=== PATIENT | male | born 1955 | race Caucasian/White ===

== ENCOUNTER 2018-07-05 18:24 | Emergency (ER) | payer OTHER ==
[2018-07-05] MEDS ORDERED: LIDOCAINE 1% MPF 30 ML VIAL ONE (18:43)
--- NOTE | 2018-07-05 19:08 | RAD REPORT ---
EXAM DESCRIPTION: CT - Facial Bones W/ Mpr - 07/05/2018 6:45 pm CLINICAL HISTORY: Facial injury status post fall with facial pain TECHNIQUE: Computed axial tomography of the face was obtained. Coronal and sagittal reconstruction w as performed. All CT scans are performed using dose optimization technique as appropriate and may include automated exposure control or mA/KV adjustment according to patient size. FINDINGS: A mildly displaced fracture of the nasal septum. A mildly displaced nasal bone is seen A TMJ dislocation is not noted. Lucencies surround 2 mandibular teeth probably indicating abscesses The globes are intact. Moderate mucoperiosteal thickening involves the sinuses IMPRESSION: A mildly displaced fracture nasal septum and nasal bone
--- NOTE | 2018-07-05 19:15 | RAD REPORT ---
EXAM DESCRIPTION: CT - Head C Spine Mpr Wo Con - 07/05/2018 6:45 pm CLINICAL HISTORY: Head and neck injury status post fall. Head and neck pain COMPARISON: None. TECHNIQUE: Computed axial tomography of the head and cervical spine was obtained. Sagittal and coronal reconstruction was performed. All CT scans are performed using dose optimization technique as appropriate and may include automated exposure control or mA/KV adjustment according to patient size. FINDINGS: An intracranial bleed is not seen. The ventricles are normal in caliber. An extra-axial fl uid collection is not noted. A cervical fracture is not visualized. No dislocation is noted. Spondylosis C5-6 results in moderate central spinal stenosis and moderate to marked foraminal stenosis. Spondylosis C6-7 results in modera te foraminal stenosis IMPRESSION: No acute intracranial abnormality is seen. A cervical fracture is not visualized. If the patient continues to have symptoms to suggest intracra nial /spinal cord pathology then MRI would be recommended
[2018-07-05] MEDS ORDERED: BUPIVACAINE 0.5% PF 10 ML VIAL ONE (19:45)
[2018-07-05] MEDS ORDERED: LIDOCAINE 1% W/EPI 1:100,000 MDV 50 ML VIAL ONE (19:46)
--- NOTE | 2018-07-05 20:28 | EDPHYS ---
Physician Documentation [facility] Name: Pablo Ross Age: 63 yrs Sex: Male : 1955 Arrival Date: 07/05/2018 Time: 18:26 Bed 5 Private MD: ED Physician Rangel De La Cruz HPI: 07/05 18:35 This 63 yrs old Male presents to ER via EMS with complaints of Fall Injury, cp Laceration To Forehead. 18:35 Details of fall: The patient fell from an upright position, while walking, and struck a cp concrete surface. Onset: The symptoms/episode began/occurred just prior to arrival. Associated injuries: The patient sustained injury to the head, laceration, of the forehead and nose. 18:35 Patient reports he was playing with grandson when his feet got tangled causing him to cp fall forward and strike face against concrete. No LOC. Historical: - Allergies: 18:34 No Known Allergies; bp - Home Meds: 18:34 None [Active]; bp - PMHx: 18:34 Emphysema; Seizures; bp - Immunization history: Last tetanus immunization: unknown. - Social history:: Smoking status: Patient uses tobacco products, smokes one pack cigarettes per day. - Ebola Screening: : Patient negative for fever greater than or equal to 101.5 degrees Fahrenheit, and additional compatible Ebola Virus Disease symptoms Patient denies exposure to infectious person Patient denies travel to an Ebola-affected area in the 21 days before illness onset No symptoms or risks identified at this time. ROS: 18:40 Constitutional: Negative for chills, fever, poor PO intake. cp 18:40 Eyes: Negative for acute changes. cp 18:40 Cardiovascular: Negative for chest pain, edema, palpitations. 18:40 Respiratory: Negative for cough, shortness of breath, wheezing. 18:40 Abdomen/GI: Negative for abdominal pain, nausea, vomiting, black/tarry stool, rectal bleeding. 18:40 Back: Negative for pain at rest, pain with movement. 18:40 Skin: Positive for laceration(s), of the forehead and nose. 18:40 Neuro: Negative for altered mental status, dizziness, loss of consciousness, seizure activity, syncope, near syncope, weakness. 18:40 All other systems are negative. Exam: 18:52 Constitutional: The patient appears in no acute distress, alert, awake, cp non-diaphoretic, non-toxic, well developed, well nourished. 18:52 Head/face: Noted is a laceration(s), that is deep, that is linear, of the forehead and cp nose, Sinus tenderness, is not appreciated. 18:52 Eyes: Periorbital structures: appear normal, Pupils: teardrop shaped, in the right eye, Extraocular movements: intact throughout, Conjunctiva: normal, no exudate, no injection, Sclera: no appreciated abnormality, Lids and lashes: appear normal, bilaterally. 18:52 ENT: External ear(s): are unremarkable, Ear canal(s): are normal, clear, TM's: dullness, bilaterally, Nose: External nose: laceration is present, bridge of nose, Nasal septum: no septal hematoma appreciated, bleeding, is not appreciated, nasal drainage, is not appreciated, Mouth: Lips: moist, Oral mucosa: pink and intact, moist, Posterior pharynx: is normal, airway is patent. 18:52 Neck: C-spine: C-collar placed in ED, vertebral tenderness, is not appreciated, crepitus, is not appreciated. 18:52 Chest/axilla: Inspection: normal, Palpation: is normal, no crepitus, no tenderness. 18:52 Cardiovascular: Rate: normal, Rhythm: regular, Edema: is not appreciated, JVD: is not appreciated. 18:52 Respiratory: the patient does not display signs of respiratory distress, Respirations: normal, no use of accessory muscles, no retractions, no splinting, no tachypnea, labored breathing, is not present, Breath sounds: are clear throughout, no decreased breath sounds, no stridor, no wheezing. 18:52 Abdomen/GI: Inspection: abdomen appears normal, Palpation: abdomen is soft and non-tender, in all quadrants. 18:52 Back: pain, is absent, vertebral tenderness, is not appreciated. 18:52 Musculoskeletal/extremity: Exam is negative for decreased range of motion, deformity, injury, Pulses: noted to be 2+ in the right radial artery and left radial artery. 18:52 Neuro: Orientation: to person, place \T\ time. Mentation: is normal, Cerebellar function: is grossly normal, Motor: is normal, Sensation: is normal. Vital Signs: 18:27 BP 158 / 85; Pulse 81; Resp 16; Temp 97.9; Pulse Ox 96% ; Weight 73.48 kg; Height 5 ft. bp 9 in. (175.26 cm); 18:38 BP 162 / 91; Pulse 85; Resp 16; Pulse Ox 95% ; bp 19:20 BP 145 / 81; Pulse 70; Resp 16; Pulse Ox 96% ; ao 20:46 BP 143 / 87; Pulse 71; Resp 16; Pulse Ox 97% on R/A; Pain 0/10; ao 18:27 Body Mass Index 23.92 (73.48 kg, 175.26 cm) bp [place] Coma Score: 18:27 Eye Response: spontaneous(4). Verbal Response: oriented(5). Motor Response: obeys bp commands(6). Total: 15. Trauma Score (Adult): 18:27 Eye Response: spontaneous(1); Verbal Response: oriented(1); Motor Response: obeys bp commands(2); Systolic BP: > 89 mm Hg(4); Respiratory Rate: 10 to 29 per min(4); Marco Antonio Score: 15; Trauma Score: 12 Laceration: 20:25 Wound Repair of 5.5cm ( 2.2in ) subcutaneous laceration to forehead. Linear shaped.. cp Distal neuro/vascular/tendon intact. Anesthesia: Wound infiltrated with 4 mls of 1% lidocaine w/ Epi. Wound prep: Moderate cleansing by nurse, Wound irrigation by nurse. Skin closed with 7 5-0 Prolene using interrupted sutures and sterile technique. Dressed with Bacitracin, Kerlix, non-adherent dressing. Patient tolerated well. 20:25 Wound Repair of 2cm ( 0.8in ) subcutaneous laceration to bridge of nose. Linear cp shaped.. Distal neuro/vascular/tendon intact. Anesthesia: Wound infiltrated with 2 mls of 1% lidocaine w/ Epi. Wound prep: Moderate cleansing by nurse, Wound irrigation by nurse. Skin closed with 3 5-0 Prolene using interrupted sutures and sterile technique. Dressed with Bacitracin, non-adherent dressing. Patient tolerated well. MDM: 18:31 Patient medically screened. cp 19:00 Differential diagnosis: closed head injury, contusion, fracture, laceration, multiple cp trauma. 20:27 Data reviewed: vital signs, nurses notes, radiologic studies, CT scan. cp 20:27 Counseling: I had a detailed discussion with the patient and/or guardian regarding: the cp historical points, exam findings, and any diagnostic results supporting the discharge/admit diagnosis, radiology results, to return to the emergency department if symptoms worsen or persist or if there are any questions or concerns that arise at home. Response to treatment: the patient's symptoms have markedly improved after treatment, and as a result, I will discharge patient. Special discussion: Based on the patient's history, exam and DX evaluation, there is no indication for emergent intervention or inpatient TX. It is understood by the patient/guardian that if the SXs persist or worsen they need to return immediately for re-evaluation. I discussed in detail with the patient the higher chance of wound infection based on his presenting history. 07/05 18:31 Order name: CT Head C Spine; Complete Time: 19:18 cp 07/05 18:31 Order name: CT Facial Bones W/O Con; Complete Time: 19:18 cp 07/05 18:31 Order name: Prolene, Sutures; Complete Time: 18:41 cp 07/05 18:31 Order name: Dressing - Wound; Complete Time: 18:41 cp 07/05 18:31 Order name: Gloves, Sterile; Complete Time: 18:41 cp 07/05 18:31 Order name: Setup Suture Tray; Complete Time: 18:41 cp 07/05 19:22 Order name: Wound Care: please clean and irrigate wound; Complete Time: 19:42 cp Administered Medications: 18:41 Drug: Lidocaine-Epinephrine -1%: (1:100,000) 10 ml {Note: AT B/S FOR PROVIDER.} Volume: bp 20 ml; Route: Infiltration; 20:20 Drug: Augmentin Chewable Tablet 800 mg Route: PO; ao 20:45 Follow up: Response: No adverse reaction ao 20:30 Drug: HYDROcodone-acetaminophen 5 mg-325 mg 1 tabs Route: PO; ao 20:45 Follow up: Response: No adverse reaction ao Disposition: 21:00 Chart complete. cp 07/06 07:14 Co-signature as Attending Physician, Rangel De La Cruz MD I agree with the assessment and kdr plan of care. Disposition: 07/05/18 20:27 Discharged to Home. Impression: Fracture of nasal bones, Laceration w/o foreign body of forehead and nose. - Condition is Stable. - Discharge Instructions: Facial Laceration, Nasal Fracture. - Prescriptions for Tylenol- Codeine #3 300-30 mg Oral Tablet - take 2 tablets by ORAL route every 6 hours As needed; 15 tablet. Augmentin 875- 125 mg Oral Tablet - take 1 tablet by ORAL route every 12 hours for 10 days; 20 tablet. - Medication Reconciliation Form, Thank You Letter, Antibiotic Education, Prescription Opioid Use form. - Follow up: Alma Coburn MD; When: 5 - 6 days; Reason: nasal bone fracture. Follow up: Private Physician; When: 1 week; Reason: Staple/Suture removal. - Problem is new. - Symptoms have improved. Signatures: Dispatcher [employer] EDMS Rangel De La Cruz MD MD [facility] Kvng Hensley PA PA cp Ortiz, Alex, RN RN ao Tim Pandey RN RN bp Corrections: (The following items were deleted from the chart) 07/05 20:49 20:27 07/05/2018 20:27 Discharged to Home. Impression: Fracture of nasal bones; ao Laceration w/o foreign body of forehead and nose. Condition is Stable. Forms are Medication Reconciliation Form, Thank You Letter, Antibiotic Education, Prescription Opioid Use. Follow up: Alma Coburn; When: 5 - 6 days; Reason: nasal bone fracture. Follow up: Private Physician; When: 1 week; Reason: Staple/Suture removal. Problem is new. Symptoms have improved. cp
--- NOTE | 2018-07-05 20:28 | ER ---
Nurse's Notes [facility] Name: Pablo Ross Age: 63 yrs Sex: Male : 1955 Arrival Date: 07/05/2018 Time: 18:26 Bed 5 Private MD: Diagnosis: Fracture of nasal bones;Laceration w/o foreign body of forehead and nose Presentation: 07/05 18:27 Presenting complaint: EMS states: HE TRIPPED ON LOOSE GRAVEL OUTSIDE HIS HOME. Care bp prior to arrival: None. Mechanism of Injury: Fall from standing position. Trauma event details: Injury occurred in the [facility], Injury occurred: at home. Injury occurred: July 05, 2018 Injury occurred at: 18:10. 18:27 Acuity: JEN 3 bp 18:27 Method Of Arrival: EMS: [facility] bp 18:34 Transition of care: patient was not received from another setting of care. Onset of bp symptoms was July 05, 2018 at 18:00. Risk Assessment: Do you want to hurt yourself or someone else? Patient reports no desire to harm self or others. Initial Sepsis Screen: Does the patient meet any 2 criteria? No. Patient's initial sepsis screen is negative. Does the patient have a suspected source of infection? No. Patient's initial sepsis screen is negative. Trauma Activation: Consult Physician: ED Physician; Name: ; Notified At: ; Arrived At: Physician: General Surgeon; Name: ; Notified At: ; Arrived At: Physician: Radiology; Name: ; Notified At: ; Arrived At: Physician: Respiratory; Name: ; Notified At: ; Arrived At: Physician: Lab; Name: ; Notified At: ; Arrived At: Historical: - Allergies: 18:34 No Known Allergies; bp - Home Meds: 18:34 None [Active]; bp - PMHx: 18:34 Emphysema; Seizures; bp - Immunization history: Last tetanus immunization: unknown. - Social history:: Smoking status: Patient uses tobacco products, smokes one pack cigarettes per day. - Ebola Screening: : Patient negative for fever greater than or equal to 101.5 degrees Fahrenheit, and additional compatible Ebola Virus Disease symptoms Patient denies exposure to infectious person Patient denies travel to an Ebola-affected area in the 21 days before illness onset No symptoms or risks identified at this time. Screenin:27 Abuse screen: Denies threats or abuse. Denies injuries from another. Tuberculosis bp screening: No symptoms or risk factors identified. 18:36 Nutritional screening: No deficits noted. Fall Risk Fall in past 12 months (25 points). bp Secondary diagnosis (15 points) seizures, No IV (0 pts). Ambulatory Aid- None/Bed Rest/Nurse Assist (0 pts). Gait- Normal/Bed Rest/Wheelchair (0 pts) Mental Status- Oriented to own ability (0 pts). Total Lanier Fall Scale indicates Low Risk Score (25-44 pts). Fall prevention measures have been instituted. Side Rails Up X 2 Placed close to Nursing Station Frequent Obs/Assesments occuring Family Present and informed to notify staff if they need to leave bedside As available Patient and Family Educated on Fall Prevention Program and strategies. Primary Survey: 18:27 A: Airway: patent. Breathing/Chest: Respiratory pattern: regular, Respiratory effort: bp spontaneous, unlabored. Circulation: Skin color: pink, Skin temperature: warm, dry. Disability Alert. 19:23 Reassessment Airway Airway Patent Breathing/Chest Respiratory pattern Regular ao Respiratory effort Spontaneous Breath sounds Clear Chest inspection Symmetrical Circulation Heart rhythm Sinus rhythm Disability Alert. Secondary Survey: 18:27 HEENT: Head No injury/deformity Face Other FRONTAL LACERATION. Gastrointestinal: No bp deficits noted. : No signs and/or symptoms were reported regarding the genitourinary system. Musculoskeletal: Circulation, motion, and sensation intact. Range of motion: intact in all extremities. Assessment: 18:27 General: Appears in no apparent distress. comfortable, slender, Behavior is calm, bp cooperative, appropriate for age, -LOC, -NECK PAIN, -SZ ACTIVITY. Pain: Complains of pain in forehead. Neuro: Level of Consciousness is awake, alert, obeys commands, Oriented to person, place, time, situation, Appropriate for age. EENT: No signs and/or symptoms were reported regarding the EENT system. Cardiovascular: No deficits noted. Respiratory: Airway is patent Respiratory effort is even, unlabored, Respiratory pattern is regular, symmetrical. GI: No signs and/or symptoms were reported involving the gastrointestinal system. : No signs and/or symptoms were reported regarding the genitourinary system. Derm: No deficits noted. Musculoskeletal: Circulation, motion, and sensation intact. Range of motion: intact in all extremities. Injury Description: Laceration sustained to forehead is full thickness, 2.6 to 7.5 cm long, not bleeding, was sustained 30-60 minutes ago. 18:30 Reassessment: CC APPLIED BY PROVIDER, CT PENDING. bp 19:20 General: Appears in no apparent distress. comfortable, Behavior is calm, cooperative, ao appropriate for age. Pain: Complains of pain in forehead. Neuro: Level of Consciousness is awake, alert, obeys commands, Oriented to person, place, time, situation, Appropriate for age Moves all extremities. Full function Speech is normal. Cardiovascular: Capillary refill < 3 seconds Patient's skin is warm and dry. Respiratory: Airway is patent Respiratory effort is even, unlabored, Respiratory pattern is regular, symmetrical. GI: Abdomen is non-distended. : No signs and/or symptoms were reported regarding the genitourinary system. EENT: No signs and/or symptoms were reported regarding the EENT system. Derm: Wound noted forehead Wound is Laceration in the forehead. Incision clean and bleeding has stopped. Patient waiting on sutures on the forehead. 20:46 Reassessment: Patient appears in no apparent distress at this time. DC instructions ao given to patient and and family. Patient agree with POC and follow up with PCP and Dr Wilhelm. Patient had no questions at this time. Vital Signs: 18:27 BP 158 / 85; Pulse 81; Resp 16; Temp 97.9; Pulse Ox 96% ; Weight 73.48 kg; Height 5 ft. bp 9 in. (175.26 cm); 18:38 BP 162 / 91; Pulse 85; Resp 16; Pulse Ox 95% ; bp 19:20 BP 145 / 81; Pulse 70; Resp 16; Pulse Ox 96% ; ao 20:46 BP 143 / 87; Pulse 71; Resp 16; Pulse Ox 97% on R/A; Pain 0/10; ao 18:27 Body Mass Index 23.92 (73.48 kg, 175.26 cm) bp Marco Antonio Coma Score: 18:27 Eye Response: spontaneous(4). Verbal Response: oriented(5). Motor Response: obeys bp commands(6). Total: 15. Trauma Score (Adult): 18:27 Eye Response: spontaneous(1); Verbal Response: oriented(1); Motor Response: obeys bp commands(2); Systolic BP: > 89 mm Hg(4); Respiratory Rate: 10 to 29 per min(4); Marco Antonio Score: 15; Trauma Score: 12 ED Course: 18:26 Patient arrived in ED. bp 18:27 Kvng Hensley PA is PHCP. cp 18:27 Rangel De La Cruz MD is Attending Physician. cp 18:27 Patient has correct armband on for positive identification. Bed in low position. Call bp light in reach. Side rails up X2. 18:27 Patient maintains SpO2 saturation greater than 95% on room air. bp 18:28 Triage completed. bp 18:34 Arm band placed on right wrist. bp 18:37 Thermoregulation: warm blanket given to patient. bp 18:40 Tim Pandey, VERÓNICA is Primary Nurse. bp 18:[address] via stretcher. nj 18:45 CT Head C Spine In Process Unspecified. EDMS 18:46 CT Facial Bones W/O Con In Process Unspecified. EDMS 20:25 Alma Coburn MD is Referral Physician. cp 20:45 No provider procedures requiring assistance completed. Patient did not have IV access ao during this emergency room visit. Administered Medications: 18:41 Drug: Lidocaine-Epinephrine -1%: (1:100,000) 10 ml {Note: AT B/S FOR PROVIDER.} Volume: bp 20 ml; Route: Infiltration; 20:20 Drug: Augmentin Chewable Tablet 800 mg Route: PO; ao 20:45 Follow up: Response: No adverse reaction ao 20:30 Drug: HYDROcodone-acetaminophen 5 mg-325 mg 1 tabs Route: PO; ao 20:45 Follow up: Response: No adverse reaction ao Intake: 18:27 PO: 0ml; Total: 0ml. bp Output: 18:27 Urine: 0ml; Total: 0ml. bp Outcome: 20:27 Discharge ordered by MD. cp 20:46 Discharged to home ambulatory. ao 20:46 Condition: stable 20:46 Discharge instructions given to patient, family, Instructed on discharge instructions, Demonstrated understanding of instructions, follow-up care, medications, Prescriptions given X 2. 20:46 Patient's length of stay was not longer than 2 hours. ao 20:49 Patient left the ED. ao Signatures: Dispatcher [employer] EDAR Kvng Hensley PA PA cp Ortiz, Alex, RN RN Thom Matos Brian, RN RN bp Corrections: (The following items were deleted from the chart) 18:37 18:36 Fall Risk None identified. bp bp 18:37 18:36 Thermoregulation: warm blanket given to patient. bp bp
[2018-07-05] MEDS ORDERED: AMOX TR/K CLAV 400MG CHEW TAB PO ONE (20:34)
[2018-07-05] MEDS ORDERED: HYDROCODONE/APAP 5/325 MG TAB ONE (20:34)
== END 2018-07-05 20:49 | disposition home or self-care (01) ==
LOC: ER 18:24
PROC: 0JQ10ZZ Repair Face Subcutaneous Tissue and Fascia, Open Approach (ICD-10-PCS; principal; 2018-07-05)
PROC: 09QKXZZ Repair Nasal Mucosa and Soft Tissue, External Approach (ICD-10-PCS; 2018-07-05)
DX: S01.81XA Laceration without foreign body of other part of head, initial encounter (principal); S01.21XA Laceration without foreign body of nose, initial encounter; W01.198A Fall on same level from slipping, tripping and stumbling with subsequent striking against other object, initial encounter; Y93.89 Activity, other specified; Y92.9 Unspecified place or not applicable; F17.210 Nicotine dependence, cigarettes, uncomplicated
CPT/HCPCS: 70450; 70486; 72125; 76377; 99285